=== PATIENT | female | born 1970 | race Caucasian/White ===

== ENCOUNTER 2019-02-21 05:05 | Day surgery (SDC) | payer OTHER ==
[2019-02-20 08:30] VITALS: BMI 30.7
--- NOTE | 2019-02-21 07:21 | HP ---
History & Physical Update - History History: No Change - Physical Physical: No Change - Assessment Assessment: No Change - Plan Plan: No Change (Unchanged from 02/04/19)
[2019-02-21] MEDS ORDERED: PROPOFOL 20 ML ONE (07:45)
[2019-02-21] MEDS ORDERED: SUCCINYLCHOLINE CHLORIDE 200 MG/10 ML VIAL ONE (07:45)
[2019-02-21] MEDS ORDERED: MIDAZOLAM HCL 2 MG/2 ML SINGLE DOSE VIAL ONE (07:45)
[2019-02-21] MEDS ORDERED: ePHEDrine SULFATE 50 MG/1 ML AMPULE ONE (08:00)
[2019-02-21] MEDS ORDERED: oxyCODONE HCL 5 MG TABLET PO PRN (08:36)
[2019-02-21] MEDS ORDERED: ONDANSETRON 4 MG/2 ML VIAL IVPUSH PRN (08:36)
[2019-02-21] MEDS ORDERED: LACTATED RINGERS SOLUTION 1,000 ML IV SCH (08:45)
--- NOTE | 2019-02-21 08:46 | OP ---
Operative Note - Note: Operative Date: 02/21/19 Pre-Operative Diagnosis: 48yo P3 with Menorrhagia, anemia, requiring iron transfusions Operation: Hysteroscopy, D&C, Endometrial ablation Findings: Overgrown Endometrium Post-Operative Diagnosis: Same as Pre-op Surgeon: Alyssa Winslow Anesthesiologist/MANAGER PHOTOGRAPHY: Morena Montiel Anesthesia: MAC Specimens Removed: Endometrial curretings Estimated Blood Loss (mls): 5 Drains, Volume Out (mls): 50 Fluid Volume Replaced (mls): 400 Operative Report Dictated: Yes
[2019-02-21] MEDS ORDERED: ACETAMINOPHEN INJECTION 100 ML IVPB ONE (08:54)
[2019-02-21] MEDS ORDERED: ACETAMINOPHEN 1000 MG/100 ML VIAL (NON FORMULARY) IVPB ONE ×2 (08:54→09:51)
[2019-02-21] MEDS ORDERED: ONDANSETRON 4 MG/2 ML VIAL ONE (10:09)
--- NOTE | 2019-02-21 10:20 | OP ---
DATE OF OPERATION: 02/21/2019 SURGEON: Alyssa Winslow MD PREOPERATIVE DIAGNOSIS: This 48-year-old para 3 with menorrhagia, anemia, requiring iron transfusions. OPERATION: Hysteroscopy, dilatation and curettage, endometrial ablation. FINDINGS: Overgrown endometrium. DESCRIPTION OF THE OPERATIVE PROCEDURE: After ensuring informed consent, patient was brought to the operating room where she was placed in dorsal lithotomy position. Patient was examined. Uterus was found to be 7 cm axial. Perineum and vagina were prepped and draped in sterile fashion. The cervix was visualized by placing Khan retractors into the vagina. Anterior cervical lip was reticulated with single-tooth tenaculum. Cervix was gradually dilated to accommodate 7-mm hysteroscope. Diagnostic hysteroscopy was performed, and endometrial lining was found to be overgrown. Sharp curettage was performed circumferentially to obtain endometrial curettings. The [employer] System was assembled and diagnostic hysteroscopy was performed with [employer] System as well and subsequently a complete endometrial ablation cycle was completed, as well, with good visualization of the uterine cavity. Bilateral ostia were visualized during both hysteroscopy procedures. After the completion of the hysteroscopy, which appeared to be successful, all instruments were removed from uterus, cervix, and vagina. Excellent hemostasis was achieved. Estimated blood loss was 5 mL. Urine output 50. Patient received 400 mL of IV fluid. Subsequently, all Instrument and sponge counts were correct x2, and patient was brought to the recovery room in stable condition. Maico [id number]
[2019-02-21] MEDS ORDERED: FAMOTIDINE 20 MG PREMIXED IVPB IVPB ONE (11:10)
[2019-02-21] MEDS ORDERED: FAMOTIDINE 20 MG/50 ML IVPB 20 MG/50 ML MG IVPB ONE ×2 (11:11→12:33)
[2019-02-21] MEDS ORDERED: oxyCODONE HCL 5 MG TABLET ONE (12:09)
[2019-02-21 13:35] VITALS: BP 148/93; PULSE 66; TEMP 98.5
--- NOTE | 2019-02-23 15:36 | PATH ---
Surgical Pathology Report Patient Name: CYNTHIA IBARRA [facility]. Rec. #: [id number] /Age/Gender: 1970 (Age: 48) / F Account: [id number] Location: [facility] Taken: 02/21/2019 Received: 02/21/2019 Reported: 02/23/2019 Physicians: Alyssa Winslow M.D. 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 PORTIONS OF SUBMUCOSAL SMOOTH MUSCLE TISSUE, COMPATIBLE WITH SUBMUCOSAL LEIOMYOMA. Note: Case discussed with on 02/23/19. Electronically Signed Lisa Goddard M.D. Gross Description Received in formalin labeled "endometrial curettings," is a 2.5 x 2.3 x 0.3 cm aggregate of schuster-pink, irregular to polypoid soft tissue fragments. The formalin is filtered and the specimen is entirely submitted in one cassette. /02/21/2019 [facility]/02/21/2019
== END 2019-02-21 13:15 | disposition home or self-care (01) ==
LOC: JASU-SURG 05:05
PROVIDERS: ATTEND Obstetrics & Gynecology
PROC: 0U5B8ZZ Destruction of Endometrium, Via Natural or Artificial Opening Endoscopic (ICD-10-PCS; principal; 2019-02-21 07:30)
PROC: 0UDB7ZX Extraction of Endometrium, Via Natural or Artificial Opening, Diagnostic (ICD-10-PCS; 2019-02-21 07:30)
DX: N92.0 Excessive and frequent menstruation with regular cycle (principal); D64.9 Anemia, unspecified
CPT/HCPCS: 84703; 88305-TC; 94760; J0131

== ENCOUNTER 2019-11-28 06:17 | Day surgery (SDC) | payer OTHER ==
[2019-11-23 15:05] VITALS: BMI 31.6
--- NOTE | 2019-11-28 07:12 | HP ---
History & Physical Update - History History: No Change - Physical Physical: No Change - Assessment Assessment: No Change - Plan Plan: No Change (48yo P3 with h/o simple Endometrial hypeplasia, for evaluation of Endometrium. Consent signed and witnessed.)
[2019-11-28] MEDS ORDERED: IBUPROFEN 800 MG/8 ML IJ IVPB PRN (07:13)
[2019-11-28] MEDS ORDERED: oxyCODONE HCL 5 MG TABLET PO PRN ×2 (07:13→10:38)
[2019-11-28] MEDS ORDERED: ONDANSETRON 4 MG/2 ML VIAL IVPUSH PRN ×2 (07:13→10:38)
[2019-11-28] MEDS ORDERED: IBUPROFEN 600 MG TABLET (FP) PO PRN (07:13)
--- NOTE | 2019-11-28 07:13 | OP ---
Operative Note - Note: Operative Date: 11/28/19 Pre-Operative Diagnosis: 48yo P3 with h/o Simple Endometrial Hyperplasia Operation: Hysteroscopy/D&C Findings: Scared Endometrial cavity Post-Operative Diagnosis: Same as Pre-op Surgeon: Alyssa Winslow Anesthesiologist/VOLUNTEER RECRUITMENT COORDINATOR: Hussain Mcgee Anesthesia: General Specimens Removed: Endometrial curettings Estimated Blood Loss (mls): 5 Drains & Tubes with Location: Fluid defficit - 300cc Drains, Volume Out (mls): 100 Fluid Volume Replaced (mls): 500 Operative Report Dictated: Yes
[2019-11-28] MEDS ORDERED: ELECTROLYTE-148 SOLN 1,000 ML IV SCH (07:15)
[2019-11-28] MEDS ORDERED: MIDAZOLAM HCL 2 MG/2 ML SINGLE DOSE VIAL ONE (07:30)
[2019-11-28] MEDS ORDERED: PROPOFOL 20 ML ONE (07:30)
[2019-11-28] MEDS ORDERED: fentaNYL CITRATE 250 MCG/5 ML VIAL ONE (07:30)
[2019-11-28] MEDS ORDERED: SUCCINYLCHOLINE CHLORIDE 200 MG/10 ML SYRINGE ONE (07:30)
[2019-11-28 18:06] VITALS: BP 118/80; PULSE 60; TEMP 98
--- NOTE | 2019-11-29 15:06 | PATH ---
Surgical Pathology Report Patient Name: CYNTHIA IBARRA [facility]. Rec. #: [id number] /Age/Gender: 1970 (Age: 48) / F Account: [id number] Location: [facility] Taken: 11/28/2019 Received: 11/28/2019 Reported: 11/29/2019 Physicians: Alyssa Winslow M.D. Specimen(s) Received ENDOMETRIAL CURETTINGS Clinical History Endometrial hyperplasia Final Diagnosis ENDOMETRIAL CURETTINGS: NO ENDOMETRIAL GLANDS PRESENT FOR EVALUATION. FRAGMENTS OF ENDOCERVICAL TISSUE AND SQUAMOUS EPITHELIUM, NEGATIVE FOR DYSPLASIA. PORTIONS OF SMOOTH MUSCLE AND FIBROUS STROMAL TISSUE WITH NO SIGNIFICANT PATHOLOGIC CHANGE. Comment: Multiple serial H&E stained sections examined. Electronically Signed Tiki Newsome M.D. Gross Description Received in formalin labeled "endometrial curettings," is a 1.0 x 0.8 x 0.2 cm aggregate of schuster red soft tissue fragments. The formalin is filtered and the specimen is entirely submitted in one cassette. /11/28/2019 [place]11/28/2019
--- NOTE | 2019-12-03 20:45 | OP ---
DATE OF OPERATION: 11/28/2019 PREOPERATIVE DIAGNOSIS: A 48-year-old, para 3, with history of simple hyperplasia. OPERATION: Hysteroscopy, dilation and curettage. FINDINGS: Scarred endometrial cavity. POSTOPERATIVE DIAGNOSIS: Scarred endometrial cavity. SURGEON: Alyssa Winslow MD ANESTHESIOLOGIST: Juan Mcgee MD ANESTHESIA: General. SPECIMEN REMOVED: Endometrial curettings. DESCRIPTION OF THE OPERATIVE PROCEDURE: After assuring informed consent, patient was brought to the operating room, where she was placed in dorsal lithotomy position after general anesthesia was administered. Perineum and vagina were prepped and draped in sterile fashion after calling the timeout. Bladder was emptied of 100 mL of urine. The patient was draped and Khan retractors were placed vaginally and anterior cervical lip was articulated with single-tooth tenaculum. Cervix was dilated to allow 6.3-mm Symphion hysteroscope. Uterine cavity was surveyed and found to be scarred. The resectoscope instrument was placed through the operative channel of the Symphion hysteroscope and uterine cavity was sampled circumferentially, clearing the endometrial cavity. No obvious lesions were identified. Subsequently, the procedure was terminated. All instruments were removed from cervix, uterus, and vagina. The patient received 500 mL IV fluids. Fluid deficit was 300 mL and estimated blood loss was 5 mL. All instrument and sponge counts were correct x2. The patient was brought to the recovery room in stable condition. Maico [id number]
== END 2019-11-28 12:15 | disposition home or self-care (01) ==
LOC: JASU-SURG 06:17
PROVIDERS: ATTEND Obstetrics & Gynecology
PROC: 0UDB8ZX Extraction of Endometrium, Via Natural or Artificial Opening Endoscopic, Diagnostic (ICD-10-PCS; principal; 2019-11-28 07:30)
DX: Z87.42 Personal history of other diseases of the female genital tract (principal); N85.8 Other specified noninflammatory disorders of uterus
CPT/HCPCS: 84703; 88305-TC; 94760